=== PATIENT | female | born 1935 | race Caucasian/White ===

== ENCOUNTER 2016-05-10 09:37 | Emergency (ER) | payer OTHER, MEDICARE ==
[~2016-05-10] VITALS: Ht 160 cm; Wt 49.9 kg
[~2016-05-10 09:37] MED LIST: CALCIUM + D 6001 TAB PO; FEMARA 2.5MG2.5 MG PO; FLEXERIL 5MG TAB5 MG PO; JANUMET; JANUMET 500 MG-1 TAB PO; LEXAPRO 10MG10 MG PO; LISINOPRIL10 MG PO; NAMENDA5 MG PO; PRAVASTATIN SOD40 MG PO; XGEVA120 MG/1.7 IM; [UNRECOGNIZED DRUG - OTHER]
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
[2016-05-10] MEDS ORDERED: XGEVA120 MG/1.1 (10:02)
[2016-05-10 12:21] LABS: ABSOLUTE BASOPHIL COUNT 0 /CUMM (0.0-0.2); ABSOLUTE EOSINOPHIL COUNT 0 /CUMM (0.0-0.7); ABSOLUTE GRANULOCYTE CT 5.9 /CUMM (1.4-6.5); ABSOLUTE LYMPH COUNT 1.4 /CUMM (1.2-3.4); ABSOLUTE MONOCYTE COUNT 0.4 /CUMM (0.10-0.60); BASOPHIL % 0.5 % (0.0-2.0); EOSINOPHIL % 0.5 % (0-5); HEMATOCRIT 42.1 % (37-47); MEAN CORPUSCULAR HGB 29.1 PG (27.0-31.0); MEAN CORPUSCULAR HGB CONC 33.3 G/DL (33.0-37.0); MEAN CORPUSCULAR VOLUME 87.7 FL (81.0-99.0); MEAN PLATELET VOLUME 7.3 FL (7.4-10.4); PLATELET COUNT 313 /CUMM (130-400); RBC DISTRIBUTION WIDTH 14.6 % (11.5-14.5); RED BLOOD CELL CT 4.81 /CUMM (4.20-5.40); WHITE BLOOD CELL COUNT 7.8 /CUMM (4.8-10.8)
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
[2016-05-10 14:33] VITALS: BP 165/82
== END 2016-05-10 16:09 ==
LOC: ERH 09:37
PROVIDERS: Emergency Medicine
DX: F03.90 Unspecified dementia, unspecified severity, without behavioral disturbance, psychotic disturbance, mood disturbance, and anxiety (principal); I10 Essential (primary) hypertension
CPT/HCPCS: 81001; 93005; 93010

== ENCOUNTER 2017-08-17 19:30 | Emergency (ER) | payer OTHER, MEDICARE ==
[~2017-08-17 19:30] MED LIST changes: +XGEVA120 MG/1.1
--- NOTE | 2017-08-17 19:48 | ED SYNCOPE COMPLAINT ---
History of Present Illness General Chief Complaint: Syncope and Near-Syncope Stated Complaint: SYNCOPE Source: family, EMS Exam Limitations: dementia Vital Signs & Intake/Output Vital Signs & Intake/Output Vital Signs Date Time Temp Pulse Resp B/P B/P Pulse O2 O2 Flow FiO2 Mean Ox Delivery Rate 08/18 0132 97.0 64 16 110/60 95 08/17 2219 97.4 62 18 115/62 97 Room Air 08/177 67 112/64 08/17 1935 97.0 64 20 110/52 96 Allergies Coded Allergies: NO KNOWN ALLERGIES (12/26/13) Reconcile Medications Letrozole (Femara 2.5MG) 2.5 MG TAB 1 TAB PO DAILY BREAST CANCER (Reported) Lisinopril 10 MG TABLET 1 TAB PO DAILY BP (Reported) Pravastatin Sodium 40 MG TABLET 1 TAB PO DAILY CHOLESTEROL (Reported) Triage Note: PER ASSISTED LIVING PT HAD A SYNCOPAL EPISODE WHILE AT DINNER AND WAS HYPOTENSIVE TO 60, UPON EMS ARRIVAL PT DEMENTED AT BASELINE DOES NOT RECALL EVENT EMS REPORTS INITIAL BP WAS 110 THEN ENROUTE DROPPED TO 60. Triage Nurses Notes Reviewed? yes Timing: recent history Precipitating Factors: decreased oral intake Context: at dinner, see below Episode Description: see below Loss of Consciousness: brief (seconds) Associated Symptoms: dementia HPI: 82 yo woman in dementia unit, presents with episode of syncope. Per the medics, she walked to the dinner table, sat down and briefly became unresponsive, spontaneously resolving in a few seconds. SBP in the field was initially 50's, then 80's. Per the daughter, she has had decreased oral intake chronically. She has had no injuries. She did not hit her head. No fever, chills, nausea, vomiting, diarrhea, increased urination. She is otherwise well. Past History Travel History Traveled to [place] past 21 day No Medical History Any Pertinent Medical History? 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 No Review of Systems Review of Systems Constitutional: Reports: no symptoms. EENTM: Reports: no symptoms. Respiratory: Reports: no symptoms. Cardiovascular: Reports: no symptoms. GI: Reports: no symptoms. Genitourinary: Reports: no symptoms. Musculoskeletal: Reports: no symptoms. Skin: Reports: no symptoms. Neurological/Psychological: Reports: no symptoms. All Other Systems: Reviewed and Negative Physical Exam Physical Exam General Appearance: well developed/nourished, no apparent distress Head: atraumatic, normal appearance Eyes: Bilateral: normal appearance, PERRL, EOMI. Ears, Nose, Throat: dry mucosa Neck: normal inspection, supple, full range of motion Respiratory: normal breath sounds, chest non-tender, no respiratory distress, quiet respiration, lungs clear Cardiovascular: regular rate/rhythm Gastrointestinal: normal bowel sounds, soft, non-tender, no organomegaly Back: normal inspection, normal range of motion Extremities: normal inspection, normal capillary refill, normal range of motion, no edema Psychiatric: awake, alert, pt knows name, not place or day Cranial Nerves: normal hearing, normal speech, PERRL Motor/Sensory: no motor/sensory deficits Core Measures ACS in differential dx? No CVA/TIA Diagnosis: No Sepsis Present: No Sepsis Focused Exam Completed? No Progress Differential Diagnosis: vaso vagal, cardiac dysrhythmia vs other. Plan of Care: Orders Procedure Date/time Status TROPONIN LEVEL 08/18 2239 Complete EKG 08/18 2239 Active Add-on Test (ER Only) 08/18 2103 Active TROPONIN LEVEL 08/17 1942 Complete PROTHROMBIN TIME 08/17 1942 Complete COMPREHENSIVE METABOLIC PANEL 08/17 1942 Complete CBC WITHOUT DIFFERENTIAL 08/17 1942 Complete PARTIAL THROMBOPLASTIN TIME 08/18 1939 Complete EKG 08/18 1939 Active Laboratory Tests 08/17/172235: Troponin I < 0.01 08/17/171948: APTT Cancelled 08/17/171939: Anion Gap 14, Estimated GFR 39 L, BUN/Creatinine Ratio 30.0 H, Glucose 111 H, Calcium 9.6, Total Bilirubin 0.5, AST 35, ALT 28, Alkaline Phosphatase 59, Troponin I < 0.01, Total Protein 7.0, Albumin 3.9, Globulin 3.1, Albumin/ Globulin Ratio 1.3, PT 12.7 H, INR 1.16, APTT 24 L, CBC w Diff NO MAN DIFF REQ , RBC 3.37 L, MCV 94.6, MCH 31.2 H, MCHC 33.0, RDW 15.9 H, MPV 8.1, Gran % 67.3, Lymphocytes % 21.4, Monocytes % 6.9, Eosinophils % 3.7, Basophils % 0.7, Absolute Granulocytes 7.2 H, Absolute Lymphocytes 2.3, Absolute Monocytes 0.7 H, Absolute Eosinophils 0.4, Absolute Basophils 0.1 Diagnostic Imaging: Viewed by Me: Radiology Read. Discussed w/RAD: Radiology Read. Initial ED EKG: normal axis, normal intervals, normal p-waves, normal QRS complex, normal sinus rhythm Repeat EKG: unchanged Departure Departure Disposition: HOME OR SELF CARE Condition: Stable Clinical Impression Primary Impression: Dehydration Secondary Impressions: Syncope Referrals: Brook Wadsworth MD (PCP/Family) Departure Forms: Customer Survey General Discharge Information Comments 08/17/17, 21:15... discussed with daughter... pt is dnr/dni. goals of care are to address correctable issues such as electrlyte abnormalities, etc, and not pursue a more invasive course. 08/17/17, 23:38... discussed with vinay johnson and KATRINA, who affirms plan for return to [facility]. Referrals: Brook Wadsworth MD (PCP/Family) Departure Forms: Customer Survey General Discharge Information Comments 08/17/17, 21:15... discussed with daughter... pt is dnr/dni. goals of care are to address correctable issues such as electrlyte abnormalities, etc, and not pursue a more invasive course. 08/17/17, 23:38... discussed with vinay johnson and KATRINA, who affirms plan for return to [facility].
[2017-08-17 19:55] LABS: ABSOLUTE BASOPHIL COUNT 0.1 /CUMM (0.0-0.2); ABSOLUTE EOSINOPHIL COUNT 0.4 /CUMM (0.0-0.7); ABSOLUTE GRANULOCYTE CT 7.2 /CUMM (1.4-6.5); ABSOLUTE LYMPH COUNT 2.3 /CUMM (1.2-3.4); ABSOLUTE MONOCYTE COUNT 0.7 /CUMM (0.10-0.60); BASOPHIL % 0.7 % (0.0-2.0); EOSINOPHIL % 3.7 % (0-5); GRANULOCYTE % 67.3 % (42.2-75.2); HEMATOCRIT 31.8 % (37-47); MEAN CORPUSCULAR HGB 31.2 PG (27.0-31.0); MEAN CORPUSCULAR VOLUME 94.6 FL (81.0-99.0); MEAN PLATELET VOLUME 8.1 FL (7.4-10.4); PLATELET COUNT 337 /CUMM (130-400); RBC DISTRIBUTION WIDTH 15.9 % (11.5-14.5); RED BLOOD CELL CT 3.37 /CUMM (4.20-5.40); WHITE BLOOD CELL COUNT 10.7 /CUMM (4.8-10.8)
[2017-08-17 19:59] LABS: PT 12.7 SEC (9.4-12.5)
[2017-08-17 21:15] LABS: PTT 24 SEC (25-37)
--- NOTE | 2017-08-17 22:08 | RADIOLOGY REPORT ---
EXAMINATION: XR PORTABLE CHEST CLINICAL INFORMATION: Syncope COMPARISON: 05/10/2016 TECHNIQUE: Portable frontal view of the chest was obtained. FINDINGS: There is new blunting of left costophrenic angle suggesting a small left pleural effusion or atelectasis. Normal pulmonary vascularity. No pneumothorax. Mildly tortuous aorta. Normal heart size. IMPRESSION: New blunting of left costophrenic angle suggests a small left pleural effusion and/or atelectasis.
[2017-08-18 01:32] VITALS: BP 110/60
[2017-11-18] MEDS ORDERED: FEMARA2.5 M1 PO (04:24)
[2017-11-18] MEDS ORDERED: LISINOPRIL10 M1 PO (04:25)
[2017-11-18] MEDS ORDERED: SEROQUEL25 M1 PO ×2 (04:26)
[2017-11-18] MEDS ORDERED: PRAVACHOL40 M1 PO (04:27)
== END 2017-08-18 02:00 ==
LOC: ERH 19:30 → EDBD 19:47 → ERH 08-18 02:00
PROVIDERS: Pediatrics
DX: E86.0 Dehydration (principal); R55 Syncope and collapse
CPT/HCPCS: 71045; 93005; 93010; 96360; 96361; 96372

== ENCOUNTER 2017-11-23 22:11 | Emergency (ER) | payer OTHER, MEDICARE ==
[~2017-11-23 22:11] MED LIST changes: +FEMARA2.5 M1 PO; +LISINOPRIL10 M1 PO; +PRAVACHOL40 M1 PO; +SEROQUEL25 M1 PO
[2017-11-23 22:15] VITALS: BP 170/86
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
--- NOTE | 2017-11-23 23:35 | ED MVC/FALL/TRAUMA COMPLAINT ---
History of Present Illness General Chief Complaint: Fall Stated Complaint: BIBA FALL Source: patient, EMS, W10 Exam Limitations: no limitations Vital Signs & Intake/Output Vital Signs & Intake/Output Vital Signs Date Time Temp Pulse Resp B/P B/P Pulse O2 O2 Flow FiO2 Mean Ox Delivery Rate 11/23 2214 Room Air 11/23 2214 97.2 81 20 170/86 96 Room Air ED Intake and Output 11/24 0000 11/23 1200 Intake Total 0 Output Total Balance 0 Intake, Oral 0 Allergies Coded Allergies: NO KNOWN ALLERGIES (NONE 11/18/17) Reconcile Medications Letrozole (Femara) 2.5 MG TABLET 1 TAB PO DAILY BREAST CANCER (Reported) Lisinopril 10 MG TABLET 1 TAB PO DAILY HTN (Reported) Pravastatin Sodium (Pravachol) 40 MG TABLET 1 TAB PO DAILY CHOL (Reported) Quetiapine Fumarate (Seroquel) 25 MG TABLET 2 TAB PO QPM SLEEP (Reported) Quetiapine Fumarate (Seroquel) 25 MG TABLET 1 TAB PO DAILY ANXIETY (Reported) Triage Note: PT BIBA FROM SNF. PER EMS REPORT STAFF PUT PT TO BED AND APPROXIMATLY 30 MINUTES LATER WAS FOUND ON THE GROUND. PT HAS HX OF DEMETIA AND IS ALTERED AT BASELINE. ALERT TO PERSON AND PLACE ON ARRIVAL. Triage Nurses Notes Reviewed? yes Onset: Abrupt Duration: hour(s): (1), constant, continues in ED Timing: single episode today Severity: mild, moderate Injuries/Fall Location: no injury Method of Injury: fall Loss of Consciousness: unsure No Modifying Factors: none LMP (ages 10-50): post menopausal : No Patient currently breastfeeds: No HPI: 82 YEAR OLD FEMALE HX OF DEMENTIA, HTN, HLD PRESENTS FOR EVAL AFTER A FALL. PT LIVES IN A SNF. SHE WAS PUT TO BED AND ABOUT 30 MIN LATER ATTEMPTED TO GET UP OUT OF BED AND FELL. THE FALL WAS UNWITTNESED. Patient has a history of recurrent falls. Patient has dementia but is at her baseline currently. No blood thinners. She currently offers no complaints. She has been ambulatory since. She denies chest pain shortness of breath or dizziness before the fall. She has no headache neck pain chest pain abdominal pain hip pain or arm pain. (Kevin Carney) Past History Travel History Traveled to [place] past 21 day No Medical History Any Pertinent Medical History? see below for history Neurological: dementia EENT: NONE Cardiovascular: hypertension, hyperlipidemia Respiratory: NONE Gastrointestinal: NONE Hepatic: NONE Renal: NONE Musculoskeletal: NONE Psychiatric: NONE Endocrine: NONE Blood Disorders: NONE Cancer(s): BREAST CANCER HEARING SPECIALIST/Reproductive: NONE Surgical History Surgical History: non-contributory Psychosocial History Who do you live with Patient/Self Services at Home None What is your primary language Chilean Tobacco Use: Cognitive Impairment Family History Hx Contributory? No (Kevin Carney) Review of Systems Review of Systems Constitutional: Reports: no symptoms. Eyes: Reports: no symptoms. Ears, Nose, Throat, Mouth: Reports: no symptoms. Respiratory: Reports: no symptoms. Cardiovascular: Reports: no symptoms. Gastrointestinal/Abdominal: Reports: no symptoms. Genitourinary: Reports: no symptoms. Musculoskeletal: Reports: no symptoms. Skin: Reports: no symptoms. Neurological/Psychological: Reports: dementia. All Other Systems: Reviewed and Negative (Kevin Carney) Physical Exam Physical Exam General Appearance: well developed/nourished, no apparent distress, alert, awake Head: atraumatic, normal appearance Eyes: Bilateral: normal appearance, PERRL, EOMI. Ears, Nose, Throat, Mouth: hearing grossly normal, moist mucous membrane Neck: normal inspection, supple, full range of motion, no midline tenderness Respiratory: normal breath sounds, chest non-tender, no respiratory distress, lungs clear Cardiovascular: regular rate/rhythm, normal peripheral pulses Peripheral Pulses: 2+ radial (R), 2+ radial (L), 2+ tibialis posterior (R), 2+ tibialis posterior ( L), 2+ dorsalis pedis (R), 2+ dorsalis pedis (L) Gastrointestinal: soft, non-tender Back: normal inspection, normal range of motion, no vertebral tenderness Extremities: normal range of motion, NO JOINT SWELLING OR BRUISING OR ABRASIONS PATIENT IS ABLE TO BEAR WEIGHT Neurologic/Psych: no motor/sensory deficits, awake, alert, normal mood/affect, PATIENT IS ORIENTED TO PERSON AND PLACE ONLY. Skin: intact, normal color, warm/dry Core Measures ACS in differential dx? No CVA/TIA Diagnosis No Sepsis Present: No Sepsis Focused Exam Completed? No (Kevin Carney) Progress Differential Diagnosis: abd injury, C/T/L spine injury, ext injury, ICH, pelvis injury, spinal cord injury Plan of Care: Orders Procedure Date/time Status EKG 11/23 2337 Active Patient Safety Monitor 11/23 2242 Active Patient is here for evaluation after a fall. The fall was unwitnessed. She offers no complaints ML status at baseline according to SNF STAFF. She has no bony point tenderness or gross deformity suggestive fracture. Abdomen is soft and nontender no rib pain no pain or swelling in her extremities. A CT scan of the head and neck was obtained and EKG will be obtained. Patient unwilling to allow EKG to be performed. She has dementia as she was not able to sit still she was removing the leads. CT scan of the head and neck is negative. There is no evidence of any trauma on exam. Mental status is at baseline. She'll be discharged back to the ECF. Discussed return precautions case discussed with Dr. Chirinos he agrees. Diagnostic Imaging: Viewed by Me: CT Scan. Discussed w/RAD: CT Scan. Radiology Impression: PATIENT: SAVI SYED PRESENT AGE: 82 PATIENT ACCOUNT NO: [id number] : 37 LOCATION: [facility] ORDERING PHYSICIAN: Kevin MONTOYA SERVICE DATE: 11/23/17 EXAM TYPE: CAT - CT CERV SPINE WO IV CONTRAST; CT HEAD WO IV CONTRAST EXAMINATION: NONCONTRAST HEAD CT NONCONTRAST CERVICAL SPINE CT INDICATION INFORMATION: Trauma. Unwitnessed fall with head strike. COMPARISON: 11/18/2017 TECHNIQUE: Separate noncontrast CT examinations of the head and cervical spine were performed. Coronal and sagittal images were created for each examination at the technologist workstation. DLP: 943 mGy-cm FINDINGS: Head: There is no evidence of acute intracranial hemorrhage or territorial infarction. No abnormal mass effect or midline shift is seen. [place]cantara to white matter differentiation is well preserved. No extra-axial fluid collections are identified. No hydrocephalus. Proportional prominence of the ventricles and sulcal spaces is consistent with mild volume loss. Patchy periventricular and deep white matter hypoattenuation is consistent with mild small vessel ischemic changes. No acute osseous or soft tissue abnormality. The mastoid air cells and visualized portions of the paranasal sinuses are well aerated. Cervical spine: There is anatomic alignment of the vertebral bodies and posterior elements. The atlantoaxial and atlantooccipital articulations are intact. There is chronic appearing deformity of the C2 vertebral body. Sclerosis of the vertebral body with articulation maintained. Vertebral body heights are maintained. Disc spaces are maintained. Small multilevel endplate osteophytes with facet arthropathy. No evidence of acute fracture. No prevertebral soft tissue swelling. Visualized portions of the lung apices are unremarkable. The thyroid gland is unremarkable. IMPRESSION: 1. No acute intracranial findings. Volume loss with small vessel ischemic change. 2. No acute fracture or malalignment of the cervical spine. Mild multilevel degenerative changes. Chronic deformity of the C2 vertebral body. DICTATED BY: Thaddeus MORATAYA,Prashant DATE/TIME DICTATED:11/23/172319 HISTORIC SITE ADMINISTRATOR:GAIL DATE/TIME TRANSCRIBED:11/23/172319 CONFIDENTIAL, DO NOT COPY WITHOUT APPROPRIATE AUTHORIZAT (Kevin Carney) Departure Departure Disposition: HOME OR SELF CARE Condition: Stable Clinical Impression Primary Impression: Fall Qualifiers: Encounter type: initial encounter Qualified Code: W19.XXXA - Unspecified fall, initial encounter Referrals: Ermelinda MORATAYA,Brook Lunsford (PCP/Family) Additional Instructions: Continue all medications as directed. Follow up with YOUr primary care doctor for a recheck. Monitor your symptoms return with any concerns. Departure Forms: Customer Survey General Discharge Information (Kevin Carney) PA/[employer]SI[employer] M[employer] CUTTER Co-Sign Statement Statement: ED Attending supervision documentation- [X] I saw and evaluated the patient. I have also reviewed all the pertinent lab results and diagnostic results. I agree with the findings and the plan of care as documented in the PA's/BRASSI[employer] C[employer] MOLD CUTTER's documentation. [] I have reviewed the ED Record and agree with the PA's/BRASSI[employer] MOLD CUTTER's documentation. [] Additions or exceptions (if any) to the PAs/BRASSIERE CUP MOLD CUTTER's note and plan are summarized below: [] (Cyrus Chirinos DO
== END 2017-11-24 00:16 ==
LOC: ERH 22:11
DX: Z04.3 Encounter for examination and observation following other accident (principal)